=== PATIENT | male | born 1970 | race American Indian/Alaskan Native ===

== ENCOUNTER 2018-09-29 05:52 | Day surgery (SDC) | payer MEDICARE, OTHER ==
[2018-09-29] MEDS ORDERED: ECOTRIN PO NR (06:12)
[2018-09-29 06:53] LABS: Hematocrit 36.9 % (35.5-45.6); Mean Corpuscular HGB Conc 35 % (32-34); Mean Corpuscular Volume 93 fl (84-94); Platelet Count 186 K/mm3 (140-440); Red Blood Count 3.98 M/mm3 (3.65-5.03); Red Cell Distribution Width 13.5 % (13.2-15.2)
[2018-09-29] MEDS: NACL 0.9% 500 ML 500 ML IV SCH ×2 (07:33→08:15)
[2018-09-29 07:37] LABS: INR 0.9 (0.87-1.13)
[2018-09-29] MEDS ORDERED: HEPARIN/NS 5000 UNIT/500ML(CATH LAB) 1,000 ML IR ONE (07:48)
[2018-09-29] MEDS ORDERED: XYLOCAINE 2% INFILTRATI ONE (07:49)
[2018-09-29] MEDS ORDERED: NITROGLYCERIN SYRINGE 3 ML ONE (07:49)
[2018-09-29 07:51] LABS: BUN/Creatinine Ratio 16; Blood Urea Nitrogen 13 mg/dL (9-20); Calcium 9.5 mg/dL (8.4-10.2); Hemolysis Index 12
[2018-09-29] MEDS ORDERED: VERSED ONE (08:11)
[2018-09-29] MEDS ORDERED: SUBLIMAZE ONE (08:11)
[2018-09-29] MEDS: CALAN ONE ×2 (08:20→08:22)
[2018-09-29] MEDS: HEPARIN 10,000 UNITS/10 ML ONE ×2 (08:21→08:22)
--- NOTE | 2018-09-29 09:08 | Short Stay Summary ---
Short Stay Documentation Date of service: 09/29/18 - History H&P: obtained from office - Allergies and Medications Current Medications: Allergies No Known Allergies Allergy (Unverified 09/18/14 07:33) Home Medications Medication Instructions Recorded Confirmed Last Taken Type Ergocalciferol [Vitamin D2] 50,000 units PO QWEEK 09/29/18 09/29/18 09/24/18 History Meloxicam [Mobic] 7.5 mg PO BID 09/29/18 09/29/18 09/28/18 History Metformin HCl [metFORMIN] 1,000 mg PO BID 09/29/18 09/29/18 09/27/18 History Metoclopramide [Reglan] 10 mg PO DAILY 09/29/18 09/29/18 09/27/18 History Simvastatin 20 mg PO DAILY 09/29/18 09/29/18 09/27/18 History glipiZIDE [Glucotrol] 10 mg PO BID 09/29/18 09/29/18 09/27/18 History metHOTREXate(DOSE WEEKLY ONLY) 15 mg PO QWEEK 09/29/18 09/29/18 09/24/18 History [metHOTREXate (DOSE WEEKLY ONLY)] Active Medications Aspirin (Ecotrin) 325 mg PO ONCE NR Stop: 09/29/18 10:00 Last Admin: 09/29/18 07:30 Dose: 325 mg Documented by: Sodium Chloride (Nacl 0.9% 500 Ml) 500 mls @ 50 mls/hr IV DIRECT TIMOTHY Stop: 09/29/18 16:59 Last Admin: 09/29/18 08:15 Dose: 50 mls/hr Documented by: - Brief post op/procedure progress note Date of procedure: 09/29/18 Pre-op diagnosis: sob Post-op diagnosis: same Procedure: see report Anesthesia: local Estimated blood loss: none - Disposition Condition at discharge: Good Disposition: [id number] TO HOME OR SELFCARE - Discharge Diagnoses (1) SOB (shortness of breath) on exertion Status: Chronic (2) Hypertension Status: Chronic Qualifiers: Hypertension type: essential hypertension Qualified Code(s): I10 - Essential (primary) hypertension (3) Hyperlipemia, mixed Status: Chronic (4) Diabetes mellitus Status: Chronic Qualifiers: Diabetes mellitus type: type 2 Diabetes mellitus complication status: without complication (5) Sarcoid Status: Chronic Short Stay Discharge Plan Activity: advance as tolerated Wound: keep clean and dry Special Instructions: hold Metformin (for two days) Follow up with: BRITANY BERRIOS MD [Primary Care Provider] - 7 Days Forms: CardCath PCI D/C Instructions
[2018-09-29 09:10] LABS: Total Cells Counted 100
[2018-09-29 09:11] LABS: Basophils % (Manual) 0 % (0.0-1.8)
[2018-09-29 09:12] LABS: Macrocytosis 1+; Platelet Estimate Consistent w Auto; Smudge Cells Few
--- NOTE | 2018-09-29 09:31 | Cardiac Catherization Report ---
LEFT HEART CATHETERIZATION CLINICAL INFORMATION: A 48-year-old -[place] gentleman with sarcoidosis, has persistent shortness of breath with hypertension, diabetes, here for suspected coronary artery disease as a cause of shortness of breath. The patient has a fixed inferior defect and cardiac PET with normal LV function. Procedure was done. Moderate sedation; 1 mg Versed, 50 mcg fentanyl. Started at 8:16 a.m., finished at 8:32 a.m., 50 minutes of moderate sedation noted. Procedure was performed in the right radial artery, sterile technique, local anesthesia, 6-[place] radial sheath inserted. Left system engaged with a JL3.5 catheter. Left main is large and long and patent, bifurcates into large LAD that is patent from proximally and distally. Diagonal 1 is a medium caliber vessel that is patent. Circumflex is a large caliber vessel that is patent, goes into large OM1 that is patent. RCA engaged with JR4. Large caliber vessel with moderate tortuosity is patent. PDA and PLV are medium caliber and patent. LV gram done in JAMIL and ARORA view shows normal LV function, LVEDP 10 mmHg, LV is 118/10, aortic is 115/77. No gradient across the aortic valve on pullback. A 5-[place] catheters all taken over guidewire. A 6-[place] radial sheath was discontinued. Radial band applied. No hematoma, no bleeding. SUMMARY: Normal coronaries, left main patent, LAD patent, circumflex patent, OM1 patent, diagonal patent, RCA patent with normal LV function, normal left end-diastolic pressure. Continue risk factor modification. Discussed in detail with the patient and patient's family. JOB# [id number] SETH/LIANA
[2018-09-29 11:35] VITALS: BP 121/81
== END 2018-09-29 11:30 | disposition home or self-care (01) ==
LOC: CATHLABREC 05:52
PROVIDERS: ATTEND Internal Medicine
DX: R06.02 Shortness of breath (principal); I10 Essential (primary) hypertension; E11.9 Type 2 diabetes mellitus without complications; D86.89 Sarcoidosis of other sites; E78.2 Mixed hyperlipidemia; E78.00 Pure hypercholesterolemia, unspecified; Z79.899 Other long term (current) drug therapy; Z79.84 Long term (current) use of oral hypoglycemic drugs; Z83.3 Family history of diabetes mellitus
CPT/HCPCS: 36415; 80048; 85007; 85025; 85610; 85730; 93010; 93458; 99156; 99157; C1894; J1644; J2250; J3010; J7040; 93005; Q9967